=== PATIENT | male | born 1950 | race Caucasian/White ===

== ENCOUNTER 2023-08-28 14:04 | Inpatient (IN) ==
[2023-08-28 14:26] LABS: Hematocrit 45.2 % (38-53); Hemoglobin 14.8 g/dL (13.2-16.3); Mean Corpuscular Hemoglobin 31.5 pg (27-33); Mean Corpuscular Hgb Conc 32.8 g/dL (31-36); Mean Corpuscular Volume 96.1 fL (80-97); Platelet Count 215 10^3/uL (150-450); Red Cell Distribution Width 15.6 % (12-17); White Blood Count 10.2 10^3/uL (3.6-10.2)
[2023-08-28 14:33] LABS: INR 1.35 (0.83-1.13)
[2023-08-28 14:59] LABS: Albumin 4.5 g/dL (3.2-5.2); Calcium 9.8 mg/dL (8.6-10.3); Creatinine, Serum 1.48 mg/dL (0.67-1.17); Globulin 2.3 g/dL (2-4); Potassium 4.3 mmol/L (3.5-5.0); Total Bilirubin 2.7 mg/dL (0.2-1.0); Total Protein 6.8 g/dL (6.4-8.9); eGFR CKD-EPI 50.3 (>60)
[2023-08-28] MEDS: Magnesium Sulfate 2 gm BAG 2 GM/50 ML BAG IVPB ONE (15:03)
[2023-08-28 15:22] LABS: ABS Basophils 0.2 10^3/uL (0.0-0.1); ABS Eosinophils 0.1 10^3/uL (0.0-0.5); ABS Lymphocytes 0.8 10^3/uL (1.0-4.8); ABS Monocytes 0.6 10^3/uL (0.0-1.1); ABS Neutrophils 8.5 10^3/uL (1.5-7.6); ABS Nucleated RBC 0.01 10^3/ul; Eosinophil % 0.8 %; Lymphocyte % 7.4 %; Nucleated Red Blood Cells % 0.1 %/100WBC (0.0-0.8)
[2023-08-28 15:41] LABS: High Sensitivity Troponin 1 Hr 98 pg/mL (<20)
[2023-08-28 15:46] LABS: TSH Ultra Thyroid Stim Horm 4.45 mcIU/mL (0.34-5.60)
[2023-08-28] MEDS: Digoxin IV 0.5 MG/2 ML AMP (0.25 MG/ML) IV SLOW PU ONE (16:11)
[2023-08-28] MEDS: Esmolol 10 MG/ML IVPREMIX 2,500 MG/250 ML BAG IV SCH (18:55)
[2023-08-28] MEDS: Furosemide 40 mg/4 ml IV VIAL IV SLOW PU ONE (19:30)
[2023-08-28] MEDS: Enoxaparin 100 MG/ML SYR SUBCUT SCH (21:08)
[2023-08-28] MEDS: Lactated Ringers 1000 ml BAG 750 ML IV ONE (22:02)
[2023-08-29] MEDS: Digoxin IV 0.5 MG/2 ML AMP (0.25 MG/ML) IV SLOW PU ONE ×3 (00:36→18:58)
[2023-08-29 04:47] LABS: ABS Eosinophils 0.1 10^3/uL (0.0-0.5); ABS Lymphocytes 0.6 10^3/uL (1.0-4.8); ABS Monocytes 0.5 10^3/uL (0.0-1.1); ABS Neutrophils 7.4 10^3/uL (1.5-7.6); Eosinophil % 1.7 %; Hematocrit 38.1 % (38-53); Hemoglobin 12.7 g/dL (13.2-16.3); Lymphocyte % 7.2 %; Mean Corpuscular Hemoglobin 31.6 pg (27-33); Mean Corpuscular Hgb Conc 33.3 g/dL (31-36); Mean Corpuscular Volume 94.7 fL (80-97); Platelet Count 151 10^3/uL (150-450); Red Blood Count 4.02 10^6/uL (4.06-5.63); Red Cell Distribution Width 15.2 % (12-17); White Blood Count 8.7 10^3/uL (3.6-10.2)
[2023-08-29 05:09] LABS: Anion Gap 8 mmol/L (2-16); Blood Urea Nitrogen 46 mg/dL (6-24); CO2 Carbon Dioxide 25 mmol/L (22-32); Calcium 8.4 mg/dL (8.6-10.3); Chloride 106 mmol/L (101-111); Creatinine, Serum 1.67 mg/dL (0.67-1.17); Glucose 95 mg/dL (70-100); Sodium 139 mmol/L (135-145); eGFR CKD-EPI 43.5 (>60)
[2023-08-29] MEDS: Esmolol 10 MG/ML IVPREMIX 2,500 MG/250 ML BAG IV SCH ×2 (09:12→13:46)
[2023-08-29 09:30] LABS: Magnesium 2.4 mg/dL (1.9-2.7)
[2023-08-29] MEDS: Furosemide 40 mg/4 ml IV VIAL IV SCH (10:35)
[2023-08-29 10:43] LABS: ABS Eosinophils 0.1 10^3/uL (0.0-0.5); ABS Lymphocytes 0.4 10^3/uL (1.0-4.8); ABS Monocytes 0.5 10^3/uL (0.0-1.1); ABS Neutrophils 9.4 10^3/uL (1.5-7.6); Hematocrit 39.4 % (38-53); Lymphocyte % 3.6 %; Mean Corpuscular Hemoglobin 31.6 pg (27-33); Mean Corpuscular Hgb Conc 33.1 g/dL (31-36); Mean Corpuscular Volume 95.6 fL (80-97); Mean Platelet Volume 10.1 fL (7.5-11.2); Platelet Count 145 10^3/uL (150-450); Red Blood Count 4.12 10^6/uL (4.06-5.63); Red Cell Distribution Width 15.1 % (12-17); White Blood Count 10.4 10^3/uL (3.6-10.2)
[2023-08-29 11:02] LABS: Albumin 3.7 g/dL (3.2-5.2); Albumin/Globulin Ratio 2.2 (1-3); Calcium 8.5 mg/dL (8.6-10.3); Creatinine, Serum 1.73 mg/dL (0.67-1.17); Direct Bilirubin 1.4 mg/dL (0.03-0.18); Globulin 1.7 g/dL (2-4); Indirect Bilirubin 5.2 mg/dL (0.3-1.0); Potassium 4.6 mmol/L (3.5-5.0); Total Bilirubin 6.6 mg/dL (0.2-1.0); Total Protein 5.4 g/dL (6.4-8.9); eGFR CKD-EPI 41.7 (>60)
[2023-08-29 11:16] LABS: Activated Partial Thrombo Time 34.5 seconds (26.0-38.0); INR 1.35 (0.83-1.13)
[2023-08-29 11:31] LABS: Ferritin 98.5 ng/mL (24-336)
[2023-08-29] MEDS: Metoprolol Tartrate 5 mg VIAL 5 ml VIAL (1 mg/ml) IV PRN (11:31)
[2023-08-29] MEDS: Metoprolol Tartrate 5 mg VIAL 5 ml VIAL (1 mg/ml) ONE (12:04)
[2023-08-29] MEDS ORDERED: Metoprolol Tartrate 5 mg VIAL 5 ml VIAL (1 mg/ml) IV PRN (12:06)
[2023-08-29 12:34] LABS: Urine Appearance Turbid; Urine Specific Gravity 1.024 (1.002-1.030)
[2023-08-29 12:35] LABS: Urine Color Brown
[2023-08-29 12:50] LABS: Urine Bacteria 1+ (Absent); Urine White Blood Cell Trace(0-5/hpf) (Absent)
[2023-08-29 12:51] LABS: Urine Amorphous Crystals Present /HPF (Absent); Urine Granular Casts Present (Absent)
[2023-08-29] MEDS: Heparin DRIP 25,000 UNITS BAG 25,000 UNITS/250 ML BAG IV SCH (21:09)
[2023-08-30 03:58] LABS: Albumin 3.4 g/dL (3.2-5.2); Albumin/Globulin Ratio 1.8 (1-3); Calcium 8.4 mg/dL (8.6-10.3); Creatinine, Serum 1.61 mg/dL (0.67-1.17); Globulin 1.9 g/dL (2-4); Magnesium 2.1 mg/dL (1.9-2.7); Potassium 3.7 mmol/L (3.5-5.0); Total Bilirubin 3.9 mg/dL (0.2-1.0); Total Protein 5.3 g/dL (6.4-8.9); eGFR CKD-EPI 45.4 (>60)
[2023-08-30 04:24] LABS: ABS Lymphocytes 0.4 10^3/uL (1.0-4.8); ABS Monocytes 0.7 10^3/uL (0.0-1.1); ABS Neutrophils 10.8 10^3/uL (1.5-7.6); ABS Nucleated RBC 0.03 10^3/ul; Eosinophil % 0.1 %; Hematocrit 42.3 % (38-53); Hemoglobin 14.2 g/dL (13.2-16.3); Lymphocyte % 3.5 %; Mean Corpuscular Hgb Conc 33.5 g/dL (31-36); Mean Corpuscular Volume 95.6 fL (80-97); Mean Platelet Volume 10.3 fL (7.5-11.2); Nucleated Red Blood Cells % 0.2 %/100WBC (0.0-0.8); Platelet Count 119 10^3/uL (150-450); Red Blood Count 4.43 10^6/uL (4.06-5.63); Red Cell Distribution Width 15.2 % (12-17); White Blood Count 11.8 10^3/uL (3.6-10.2)
[2023-08-30] MEDS ORDERED: Naloxone 0.4 mg VIAL 0.4 mg/ml 1 ml VIAL ONE (08:08)
[2023-08-30] MEDS: Potassium Chlor 20 meq TAB.ER PO ONE ×2 (08:08→21:57)
[2023-08-30] MEDS ORDERED: fentaNYL 100 mcg/2 ml 50 MCG/ML VIAL ONE (08:08)
[2023-08-30] MEDS ORDERED: Flumazenil 0.5 mg/5 ml 0.1 MG/ML 5 ml VIAL ONE (08:08)
[2023-08-30] MEDS ORDERED: Midazolam 5 mg/5 ml VIAL 1 mg/ml 5 ml VIAL (5 mg) ONE (08:08)
[2023-08-30] MEDS ORDERED: .Amiodarone 24HR ONLY IV Protocol Order Note IV ONE (08:16)
[2023-08-30] MEDS: Amiodarone 150 mg IVPREMIX 150 MG/100 ML BAG IV ONE (08:32)
[2023-08-30] MEDS: KCL 20 MEQ/100 ML IVPREMIX 20 MEQ/100 ML BAG IV ONE ×2 (08:45→21:56)
[2023-08-30] MEDS: Amiodarone 360 MG IVPREMIX 360 MG/200 ML BAG IV SCH ×2 (08:47→14:42)
[2023-08-30] MEDS ORDERED: Metoprolol Tartrate 5 mg VIAL 5 ml VIAL (1 mg/ml) IV PRN (09:27)
[2023-08-30] MEDS: fentaNYL 100 mcg/2 ml 50 MCG/ML VIAL IV SLOW PU ONE (10:32)
[2023-08-30] MEDS: Midazolam 10 mg/10 ml VIAL 1 mg/ml 10 ml VIAL (10 mg) IV SLOW PU ONE (10:33)
[2023-08-30] MEDS: Heparin 5000 UNITS/ML 1 mL VIAL IV PRN (21:52)
[2023-08-31 04:43] LABS: ABS Lymphocytes 0.5 10^3/uL (1.0-4.8); ABS Monocytes 0.9 10^3/uL (0.0-1.1); ABS Neutrophils 11.2 10^3/uL (1.5-7.6); ABS Nucleated RBC 0.01 10^3/ul; Eosinophil % 0.3 %; Hemoglobin 14.1 g/dL (13.2-16.3); Lymphocyte % 4.1 %; Mean Corpuscular Hemoglobin 31.2 pg (27-33); Mean Corpuscular Hgb Conc 33.5 g/dL (31-36); Mean Platelet Volume 9.8 fL (7.5-11.2); Platelet Count 141 10^3/uL (150-450); Red Blood Count 4.52 10^6/uL (4.06-5.63); Red Cell Distribution Width 14.7 % (12-17); White Blood Count 12.7 10^3/uL (3.6-10.2)
[2023-08-31 04:59] LABS: Albumin 3.5 g/dL (3.2-5.2); Albumin/Globulin Ratio 1.9 (1-3); Calcium 8.6 mg/dL (8.6-10.3); Creatinine, Serum 1.22 mg/dL (0.67-1.17); Globulin 1.8 g/dL (2-4); Potassium 3.1 mmol/L (3.5-5.0); Total Bilirubin 2.4 mg/dL (0.2-1.0); Total Protein 5.3 g/dL (6.4-8.9); eGFR CKD-EPI 63.4 (>60)
[2023-08-31] MEDS: Potassium Chlor 20 meq TAB.ER PO ONE (06:27)
[2023-08-31] MEDS: KCL 20 MEQ/100 ML IVPREMIX 20 MEQ/100 ML BAG IV SCH (06:30)
[2023-08-31] MEDS ORDERED: Lidocaine 1% MPF 5 ML VIAL ONE (09:11)
[2023-08-31] MEDS ORDERED: Heparin 2 UNITS/ML 1000 mls 2,000 ML IV ONE (09:11)
[2023-08-31] MEDS ORDERED: VERAPAMIL 2.5 MG/ML 2 ML VIAL ** 5 mg/2 ml ONE (09:49)
[2023-08-31] MEDS ORDERED: Heparin 1,000 UNIT/ML 10 ml (10,000 UNITS) CATHLAB/DIALYSIS ONE (09:49)
[2023-08-31] MEDS ORDERED: Iodixanol 320 (CONTRAST) 100 ML SDV ONE (09:49)
[2023-08-31] MEDS ORDERED: fentaNYL 100 mcg/2 ml 50 MCG/ML VIAL ONE (09:49)
[2023-08-31] MEDS ORDERED: Midazolam 5 mg/5 ml VIAL 1 mg/ml 5 ml VIAL (5 mg) ONE (09:49)
[2023-08-31] MEDS ORDERED: nitroGLYCERIN DRIP 25,000 MCG/250 ML BTL ONE (09:49)
[2023-08-31] MEDS ORDERED: Iohexol 350 (CONTRAST) 100 ML PAK IV ONE ×2 (09:49→10:50)
[2023-08-31 10:59] LABS: POC SO2 59 %
[2023-08-31 10:59] LABS: POC SO2 88 %
[2023-08-31 10:59] LABS: POC SO2 60 %
[2023-08-31] MEDS: Amiodarone 400 mg TAB PO SCH (13:08)
[2023-09-01 06:42] LABS: ABS Basophils 0.1 10^3/uL (0.0-0.1); ABS Eosinophils 0.1 10^3/uL (0.0-0.5); ABS Lymphocytes 0.6 10^3/uL (1.0-4.8); ABS Monocytes 0.7 10^3/uL (0.0-1.1); ABS Neutrophils 9.1 10^3/uL (1.5-7.6); ABS Nucleated RBC 0.01 10^3/ul; Hematocrit 43.5 % (38-53); Hemoglobin 14.5 g/dL (13.2-16.3); Lymphocyte % 5.6 %; Mean Corpuscular Hemoglobin 31.2 pg (27-33); Mean Corpuscular Hgb Conc 33.4 g/dL (31-36); Mean Corpuscular Volume 93.6 fL (80-97); Nucleated Red Blood Cells % 0.1 %/100WBC (0.0-0.8); Platelet Count 135 10^3/uL (150-450); Red Blood Count 4.65 10^6/uL (4.06-5.63); Red Cell Distribution Width 15.1 % (12-17); White Blood Count 10.6 10^3/uL (3.6-10.2)
[2023-09-01 07:01] LABS: Albumin 3.4 g/dL (3.2-5.2); Albumin/Globulin Ratio 1.4 (1-3); Calcium 8.9 mg/dL (8.6-10.3); Creatinine, Serum 1.18 mg/dL (0.67-1.17); Globulin 2.4 g/dL (2-4); Magnesium 1.9 mg/dL (1.9-2.7); Potassium 3.2 mmol/L (3.5-5.0); Total Bilirubin 2.3 mg/dL (0.2-1.0); Total Protein 5.8 g/dL (6.4-8.9)
[2023-09-01] MEDS: Potassium Chlor 20 meq TAB.ER PO SCH (09:01)
[2023-09-01] MEDS: Magnesium Sulfate 2 gm BAG 2 GM/50 ML BAG IVPB ONE (09:22)
[2023-09-02 05:58] LABS: ABS Eosinophils 0.4 10^3/uL (0.0-0.5); ABS Monocytes 0.8 10^3/uL (0.0-1.1); ABS Neutrophils 7.6 10^3/uL (1.5-7.6); Eosinophil % 4.1 %; Hematocrit 41.7 % (38-53); Hemoglobin 14.1 g/dL (13.2-16.3); Lymphocyte % 9.9 %; Mean Corpuscular Hemoglobin 31.6 pg (27-33); Mean Corpuscular Hgb Conc 33.8 g/dL (31-36); Mean Corpuscular Volume 93.3 fL (80-97); Mean Platelet Volume 9.7 fL (7.5-11.2); Platelet Count 142 10^3/uL (150-450); Red Blood Count 4.46 10^6/uL (4.06-5.63); Red Cell Distribution Width 15.4 % (12-17); White Blood Count 9.8 10^3/uL (3.6-10.2)
[2023-09-02 06:20] LABS: Albumin 3.4 g/dL (3.2-5.2); Albumin/Globulin Ratio 1.5 (1-3); Calcium 9.1 mg/dL (8.6-10.3); Creatinine, Serum 1.22 mg/dL (0.67-1.17); Globulin 2.2 g/dL (2-4); Magnesium 2.1 mg/dL (1.9-2.7); Potassium 3.5 mmol/L (3.5-5.0); Total Bilirubin 2.4 mg/dL (0.2-1.0); Total Protein 5.6 g/dL (6.4-8.9); eGFR CKD-EPI 63.4 (>60)
[2023-09-02] MEDS: Potassium Chlor 20 meq TAB.ER PO SCH (15:47)
[2023-09-03 05:58] LABS: ABS Eosinophils 0.4 10^3/uL (0.0-0.5); ABS Monocytes 0.6 10^3/uL (0.0-1.1); ABS Nucleated RBC 0.01 10^3/ul; Eosinophil % 4.9 %; Hematocrit 42.2 % (38-53); Hemoglobin 13.9 g/dL (13.2-16.3); Lymphocyte % 11.4 %; Mean Corpuscular Hemoglobin 31.2 pg (27-33); Mean Corpuscular Hgb Conc 32.9 g/dL (31-36); Mean Corpuscular Volume 94.9 fL (80-97); Mean Platelet Volume 10.2 fL (7.5-11.2); Nucleated Red Blood Cells % 0.1 %/100WBC (0.0-0.8); Platelet Count 141 10^3/uL (150-450); Red Blood Count 4.45 10^6/uL (4.06-5.63); Red Cell Distribution Width 15.5 % (12-17); White Blood Count 9.1 10^3/uL (3.6-10.2)
[2023-09-03 07:05] LABS: Magnesium 2.1 mg/dL (1.9-2.7)
[2023-09-03 07:06] LABS: Albumin 3.6 g/dL (3.2-5.2); Albumin/Globulin Ratio 1.6 (1-3); Calcium 9.3 mg/dL (8.6-10.3); Creatinine, Serum 1.29 mg/dL (0.67-1.17); Direct Bilirubin 0.6 mg/dL (0.03-0.18); Globulin 2.2 g/dL (2-4); Indirect Bilirubin 1.4 mg/dL (0.3-1.0); Potassium 3.8 mmol/L (3.5-5.0); Total Protein 5.8 g/dL (6.4-8.9); eGFR CKD-EPI 59.3 (>60)
[2023-09-03] MEDS ORDERED: fentaNYL 100 mcg/2 ml 50 MCG/ML VIAL ONE (15:21)
[2023-09-03] MEDS ORDERED: Midazolam 5 mg/5 ml VIAL 1 mg/ml 5 ml VIAL (5 mg) ONE ×2 (15:21→15:22)
[2023-09-03] MEDS ORDERED: Naloxone 0.4 mg VIAL 0.4 mg/ml 1 ml VIAL ONE (15:22)
[2023-09-03] MEDS ORDERED: Flumazenil 0.5 mg/5 ml 0.1 MG/ML 5 ml VIAL ONE (15:22)
[2023-09-03] MEDS: Midazolam 10 mg/10 ml VIAL 1 mg/ml 10 ml VIAL (10 mg) IV SLOW PU ONE (16:17)
[2023-09-03] MEDS: fentaNYL 100 mcg/2 ml 50 MCG/ML VIAL IV SLOW PU ONE (16:17)
[2023-09-03] MEDS: NS 0.9% 1000 ml BAG 1,000 ML IV ONE (17:09)
[2023-09-03 19:43] VITALS: BP 112/93
== END 2023-09-03 19:50 | disposition home or self-care (01) | DRG 286 ==
LOC: ED 14:04 → EDHOLD 18:31 → SUATTDRO 18:31 → ICU 20:01 → MEDTELE 09-01 01:34
PROVIDERS: ADMIT Student in an Organized Health Care Education/Training Program; ATTEND Internal Medicine
PROC: CARDVER (ICD-10-PCS; 2023-09-03 14:15)